=== PATIENT | female | born 1970 | race Caucasian/White ===

== ENCOUNTER 2019-01-07 18:15 | Inpatient (IN) | payer OTHER ==
[~2019-01-07] VITALS: Ht 172.7 cm; Wt 68.7 kg
[2019-01-07] MEDS ORDERED: BUPR75 PO (18:28)
[2019-01-07] MEDS ORDERED: CLON.5 PO (18:28)
[2019-01-07] MEDS ORDERED: VENL25TA47 PO (18:28)
[2019-01-07] MEDS ORDERED: BUPR100 PO (18:28)
[2019-01-07 19:08] LABS: BASOPHILS % (AUTO) 0.9 % (0.0-2.0); EOSINOPHILS % (AUTO) 1.7 % (1.0-6.0); HEMATOCRIT 40.1 % (36-46); LYMPHOCYTES # (AUTO) 2.1 K/uL (1.0-4.8); LYMPHOCYTES % (AUTO) 20.2 % (22.0-44.0); MEAN CORPUSCULAR HEMOGLOBIN 29.1 pg (26.0-34.0); MEAN CORPUSCULAR HGB CONC 32.4 G/dL (31.0-37.0); MEAN CORPUSCULAR VOLUME 90 fL (80-100); MONOCYTES # (AUTO) 0.7 K/uL (0.1-1.0); NEUTROPHILS # (AUTO) 7.2 K/uL (1.8-7.7); NEUTROPHILS % (AUTO) 70.2 % (40.0-70.0); PLATELET COUNT (AUTO) 337 K/uL (150-450); RED BLOOD CELL COUNT(AUTO) 4.46 MIL/uL (4.00-5.20); RED CELL DISTRIBUTION WIDTH 13.1 % (11.5-14.5)
[2019-01-07] MEDS ORDERED: LORazepam 1 MG TABLET PO ONE (19:15)
[2019-01-07 19:18] LABS: ANION GAP 8 mmol/L (8-16); CALCIUM, TOTAL 9.5 mg/dL (8.8-10.5); CARBON DIOXIDE 26 mmol/L (22-29); CHLORIDE 106 mmol/L (98-107); CREATININE 0.93 mg/dL (0.60-1.30); GLOMERULAR FILTR. RATE CALC > 60 mL/min (>60); GLUCOSE,RANDOM 106 mg/dL (70-110); SODIUM SERUM 140 mmol/L (136-145); UREA NITROGEN, BLOOD 15 mg/dL (7-18)
[2019-01-07 19:31] LABS: ALANINE AMINOTRANSFERASE 27 U/L (12-78); ALBUMIN 3.7 g/dL (3.4-5.0); ALKALINE PHOSPHATASE 116 U/L (46-116); ASPARTATE AMINOTRANSFERASE 22 U/L (15-37); BILIRUBIN,TOTAL 0.3 mg/dL (0.1-1.0); HCG,QUANTITATIVE 4 mIU/mL (0-6); TOTAL PROTEIN, SERUM 7.2 g/dL (6.4-8.2)
[2019-01-07] MEDS ORDERED: ACETAMINOPHEN 500 MG TABLET PO ONE (20:00)
[2019-01-07 21:00] VITALS: BP 126/79
[2019-01-07] MEDS ORDERED: 0.9% SODIUM CHLORIDE 10 ML SYRINGE IVP PRN (22:00)
[2019-01-07] MEDS ORDERED: ONDANSETRON HCL 4 MG/2 ML VIAL IVP PRN (22:00)
[2019-01-07] MEDS: DOCUSATE SODIUM 100 MG CAPSULE PO SCH (22:00)
[2019-01-07 23:40] VITALS: BP 104/72
[2019-01-07 23:46] VITALS: BP 114/59
[2019-01-08 04:54] VITALS: BP 105/59
[2019-01-08 07:03] LABS: BASOPHILS % (AUTO) 0.9 % (0.0-2.0); EOSINOPHILS % (AUTO) 3.2 % (1.0-6.0); HEMATOCRIT 38.5 % (36-46); HEMOGLOBIN 12.7 g/dL (12.0-16.0); LYMPHOCYTES # (AUTO) 2.3 K/uL (1.0-4.8); LYMPHOCYTES % (AUTO) 31.2 % (22.0-44.0); MEAN CORPUSCULAR HEMOGLOBIN 29.8 pg (26.0-34.0); MEAN CORPUSCULAR HGB CONC 32.9 G/dL (31.0-37.0); MEAN CORPUSCULAR VOLUME 91 fL (80-100); MONOCYTES # (AUTO) 0.7 K/uL (0.1-1.0); MONOCYTES % (AUTO) 9.6 % (2.0-9.0); NEUTROPHILS % (AUTO) 55.1 % (40.0-70.0); PLATELET COUNT (AUTO) 303 K/uL (150-450); RED BLOOD CELL COUNT(AUTO) 4.25 MIL/uL (4.00-5.20); RED CELL DISTRIBUTION WIDTH 12.9 % (11.5-14.5)
[2019-01-08 07:22] LABS: CALCIUM, TOTAL 9.1 mg/dL (8.8-10.5); CREATININE 1.04 mg/dL (0.60-1.30); POTASSIUM 4.3 mmol/L (3.5-5.1)
[2019-01-08 07:23] VITALS: BP 112/74
[2019-01-08] MEDS: DOCUSATE SODIUM 100 MG CAPSULE PO SCH ×2 (08:09→19:38)
[2019-01-08] MEDS: ACETAMINOPHEN 325 MG TABLET PO PRN (08:09)
[2019-01-08] MEDS ORDERED: VENLAFAXINE HCL 75 MG ER CAPSULE PO SCH (09:00)
[2019-01-08] MEDS ORDERED: BuPROPion HCL 100 MG TABLET PO SCH (09:00)
[2019-01-08] MEDS ORDERED: PANTOPRAZOLE SODIUM 40 MG DR TABLET PO SCH (09:00)
[2019-01-08] MEDS ORDERED: ClonazePAM 1 MG TABLET PO SCH (09:00)
[2019-01-08] MEDS ORDERED: BuPROPion HCL 75 MG TABLET PO SCH (09:00)
[2019-01-08] MEDS ORDERED: SODIUM CHLORIDE 0.9% 1,000 ML IV ONE (11:00)
[2019-01-08] MEDS ORDERED: DiphenhydrAMINE HCL 25 MG CAPSULE PO PRN (11:15)
[2019-01-08] MEDS ORDERED: BUPR-93 PO (11:22)
[2019-01-08] MEDS ORDERED: VENL-68 PO (11:22)
[2019-01-08 11:39] VITALS: BP 131/74
[2019-01-08] MEDS: VENLAFAXINE HCL 150 MG ER CAPSULE PO SCH (14:05)
[2019-01-08 15:31] VITALS: BP 134/80
[2019-01-08 16:46] LABS: AMPHET/METH SCREEN,URINE POSITIVE (NEGATIVE); BARBITURATE SCREEN, URINE NEGATIVE (NEGATIVE); BENZODIAZEPINES SCREEN,URINE NEGATIVE (NEGATIVE); CANNABINOID SCREEN,URINE NEGATIVE (NEGATIVE); COCAINE SCREEN,URINE NEGATIVE (NEGATIVE); METHADONE SCREEN, URINE NEGATIVE (NEGATIVE); OPIATE SCREEN,URINE NEGATIVE (NEGATIVE)
[2019-01-08 16:51] LABS: PHENCYCLIDINE SCREEN,URINE NEGATIVE (NEGATIVE)
[2019-01-08 19:35] VITALS: BP 112/69
[2019-01-08 23:35] VITALS: BP 107/65
[2019-01-09 04:55] VITALS: BP 110/68
[2019-01-09] MEDS: HydrOXYzine PAMOATE 50 MG CAPSULE PO PRN ×3 (05:03→17:50)
[2019-01-09] MEDS: ACETAMINOPHEN 325 MG TABLET PO PRN (05:03)
[2019-01-09 07:40] VITALS: BP 115/69
[2019-01-09] MEDS: MULTIVITAMINS WITH MINERALS, THERAPEUTIC TABLET PO SCH (09:09)
[2019-01-09] MEDS: VENLAFAXINE HCL 150 MG ER CAPSULE PO SCH (09:10)
[2019-01-09] MEDS: DOCUSATE SODIUM 100 MG CAPSULE PO SCH ×2 (09:12→21:00)
[2019-01-09 11:10] VITALS: BP 109/66
[2019-01-09 15:00] VITALS: BP 116/72
[2019-01-09 20:00] VITALS: BP 107/68
[2019-01-10] VITALS (7 sets, daily range): BP systolic 90–129; BP diastolic 54–91
[2019-01-10] MEDS: MULTIVITAMINS WITH MINERALS, THERAPEUTIC TABLET PO SCH (08:38)
[2019-01-10] MEDS: VENLAFAXINE HCL 150 MG ER CAPSULE PO SCH (08:38)
[2019-01-10] MEDS: DOCUSATE SODIUM 100 MG CAPSULE PO SCH ×2 (08:38→21:00)
[2019-01-10] MEDS: MEGESTROL ACETATE 400 MG/10 ML SUSPENSION UDCUP PO SCH ×2 (11:30→21:00)
[2019-01-10] MEDS: DEXTROSE 5%-0.45% SODIUM CHL 1,000 ML IV SCH (12:48)
[2019-01-10] MEDS: HydrOXYzine PAMOATE 50 MG CAPSULE PO PRN (13:50)
[2019-01-10] MEDS: MIRTAZAPINE 15 MG TABLET PO SCH (21:00)
[2019-01-10] MEDS: HEPARIN SODIUM,PORCINE 5,000 UNITS/ML VIAL SQ SCH (22:00)
[2019-01-11] VITALS (7 sets, daily range): BP systolic 92–115; BP diastolic 60–71
[2019-01-11] MEDS: DEXTROSE 5%-0.45% SODIUM CHL 1,000 ML IV SCH (04:25)
[2019-01-11] MEDS: HEPARIN SODIUM,PORCINE 5,000 UNITS/ML VIAL SQ SCH ×2 (07:50→23:48)
[2019-01-11] MEDS: MULTIVITAMINS WITH MINERALS, THERAPEUTIC TABLET PO SCH (07:50)
[2019-01-11] MEDS: VENLAFAXINE HCL 150 MG ER CAPSULE PO SCH (07:50)
[2019-01-11] MEDS: MEGESTROL ACETATE 400 MG/10 ML SUSPENSION UDCUP PO SCH ×2 (09:00→23:47)
[2019-01-11] MEDS: DOCUSATE SODIUM 100 MG CAPSULE PO SCH ×2 (09:00→23:47)
[2019-01-11] MEDS: HydrOXYzine PAMOATE 50 MG CAPSULE PO PRN (11:47)
[2019-01-11] MEDS: GABAPENTIN 100 MG CAPSULE PO SCH ×2 (18:00→23:47)
[2019-01-11] MEDS: MIRTAZAPINE 15 MG TABLET PO SCH (23:47)
[2019-01-12 05:09] VITALS: BP 97/62
[2019-01-12] MEDS: DEXTROSE 5%-0.45% SODIUM CHL 1,000 ML IV SCH ×2 (05:11→23:25)
[2019-01-12 08:06] VITALS: BP 110/71
[2019-01-12] MEDS: GABAPENTIN 100 MG CAPSULE PO SCH ×3 (09:10→20:22)
[2019-01-12] MEDS: DOCUSATE SODIUM 100 MG CAPSULE PO SCH ×3 (09:10→21:00)
[2019-01-12] MEDS: MEGESTROL ACETATE 400 MG/10 ML SUSPENSION UDCUP PO SCH ×2 (09:10→20:23)
[2019-01-12] MEDS: MULTIVITAMINS WITH MINERALS, THERAPEUTIC TABLET PO SCH (09:10)
[2019-01-12] MEDS: VENLAFAXINE HCL 150 MG ER CAPSULE PO SCH (09:10)
[2019-01-12] MEDS: HEPARIN SODIUM,PORCINE 5,000 UNITS/ML VIAL SQ SCH ×2 (09:15→20:23)
[2019-01-12] MEDS: ACETAMINOPHEN 325 MG TABLET PO PRN (12:03)
[2019-01-12 12:18] VITALS: BP 119/80
[2019-01-12 16:26] VITALS: BP 105/70
[2019-01-12 19:29] VITALS: BP 99/62
[2019-01-12] MEDS: MIRTAZAPINE 15 MG TABLET PO SCH (20:22)
[2019-01-13 00:32] VITALS: BP 113/76
[2019-01-13 05:17] VITALS: BP 111/61
[2019-01-13 06:17] LABS: ALANINE AMINOTRANSFERASE 17 U/L (12-78); ALKALINE PHOSPHATASE 100 U/L (46-116); ANION GAP 7 mmol/L (8-16); ASPARTATE AMINOTRANSFERASE 16 U/L (15-37); BILIRUBIN,TOTAL 0.2 mg/dL (0.1-1.0); CALCIUM, TOTAL 8.9 mg/dL (8.8-10.5); CARBON DIOXIDE 29 mmol/L (22-29); CHLORIDE 108 mmol/L (98-107); GLOMERULAR FILTR. RATE CALC > 60 mL/min (>60); GLUCOSE,RANDOM 94 mg/dL (70-110); POTASSIUM 4.2 mmol/L (3.5-5.1); SODIUM SERUM 144 mmol/L (136-145); TOTAL PROTEIN, SERUM 6.1 g/dL (6.4-8.2); UREA NITROGEN, BLOOD 6 mg/dL (7-18)
[2019-01-13 07:54] VITALS: BP_SYST 108; BP_SYST 8; BP_DIAS 67
[2019-01-13] MEDS: HEPARIN SODIUM,PORCINE 5,000 UNITS/ML VIAL SQ SCH ×2 (08:21→20:06)
[2019-01-13] MEDS: VENLAFAXINE HCL 150 MG ER CAPSULE PO SCH (08:22)
[2019-01-13] MEDS: GABAPENTIN 100 MG CAPSULE PO SCH ×3 (08:22→20:05)
[2019-01-13] MEDS: MEGESTROL ACETATE 400 MG/10 ML SUSPENSION UDCUP PO SCH ×2 (08:22→20:05)
[2019-01-13] MEDS: MULTIVITAMINS WITH MINERALS, THERAPEUTIC TABLET PO SCH (08:23)
[2019-01-13] MEDS: DOCUSATE SODIUM 100 MG CAPSULE PO SCH ×2 (08:24→21:00)
[2019-01-13] MEDS: DEXTROSE 5%-0.45% SODIUM CHL 1,000 ML IV SCH ×2 (15:53→23:05)
[2019-01-13 16:21] VITALS: BP 110/70
[2019-01-13] MEDS: MIRTAZAPINE 15 MG TABLET PO SCH (20:06)
[2019-01-13 20:10] VITALS: BP 94/40
[2019-01-13 23:45] VITALS: BP 95/62
[2019-01-14 05:00] VITALS: BP 110/68
[2019-01-14] MEDS: MEGESTROL ACETATE 400 MG/10 ML SUSPENSION UDCUP PO SCH ×3 (08:37→21:00)
[2019-01-14] MEDS: VENLAFAXINE HCL 150 MG ER CAPSULE PO SCH (08:37)
[2019-01-14] MEDS: HEPARIN SODIUM,PORCINE 5,000 UNITS/ML VIAL SQ SCH ×2 (08:37→20:27)
[2019-01-14] MEDS: MULTIVITAMINS WITH MINERALS, THERAPEUTIC TABLET PO SCH (08:38)
[2019-01-14] MEDS: GABAPENTIN 100 MG CAPSULE PO SCH ×3 (08:38→20:27)
[2019-01-14] MEDS: DOCUSATE SODIUM 100 MG CAPSULE PO SCH ×3 (08:40→21:00)
[2019-01-14 09:14] VITALS: BP 101/62
[2019-01-14] MEDS: DEXTROSE 5%-0.45% SODIUM CHL 1,000 ML IV SCH (11:03)
[2019-01-14 19:39] VITALS: BP 107/76
[2019-01-14] MEDS: MIRTAZAPINE 15 MG TABLET PO SCH (20:27)
[2019-01-15] MEDS: DEXTROSE 5%-0.45% SODIUM CHL 1,000 ML IV SCH ×2 (04:51→22:15)
[2019-01-15 04:54] VITALS: BP 101/66
[2019-01-15 07:40] VITALS: BP 110/57
[2019-01-15] MEDS: GABAPENTIN 100 MG CAPSULE PO SCH (07:51)
[2019-01-15] MEDS: MULTIVITAMINS WITH MINERALS, THERAPEUTIC TABLET PO SCH (07:51)
[2019-01-15] MEDS: DOCUSATE SODIUM 100 MG CAPSULE PO SCH ×3 (07:51→19:46)
[2019-01-15] MEDS: VENLAFAXINE HCL 150 MG ER CAPSULE PO SCH (07:51)
[2019-01-15] MEDS: HEPARIN SODIUM,PORCINE 5,000 UNITS/ML VIAL SQ SCH ×2 (07:52→19:43)
[2019-01-15] MEDS: MEGESTROL ACETATE 400 MG/10 ML SUSPENSION UDCUP PO SCH ×2 (07:53→19:42)
[2019-01-15 11:27] VITALS: BP 102/60
[2019-01-15 15:20] VITALS: BP 111/72
[2019-01-15] MEDS: GABAPENTIN 300 MG CAPSULE PO SCH ×2 (15:37→19:42)
[2019-01-15] MEDS: MIRTAZAPINE 15 MG TABLET PO SCH (19:42)
[2019-01-15 19:50] VITALS: BP 102/71
[2019-01-16] VITALS (7 sets, daily range): BP systolic 96–117; BP diastolic 55–77
[2019-01-16] MEDS: DOCUSATE SODIUM 100 MG CAPSULE PO SCH ×2 (08:12→21:00)
[2019-01-16] MEDS: MEGESTROL ACETATE 400 MG/10 ML SUSPENSION UDCUP PO SCH ×2 (09:11→21:00)
[2019-01-16] MEDS: VENLAFAXINE HCL 150 MG ER CAPSULE PO SCH (09:11)
[2019-01-16] MEDS: GABAPENTIN 300 MG CAPSULE PO SCH ×3 (09:11→21:08)
[2019-01-16] MEDS: MULTIVITAMINS WITH MINERALS, THERAPEUTIC TABLET PO SCH (09:11)
[2019-01-16] MEDS: HEPARIN SODIUM,PORCINE 5,000 UNITS/ML VIAL SQ SCH ×2 (09:12→21:00)
[2019-01-16] MEDS: ACETAMINOPHEN 325 MG TABLET PO PRN (21:07)
[2019-01-16] MEDS: MIRTAZAPINE 15 MG TABLET PO SCH (21:08)
[2019-01-17 05:07] VITALS: BP 105/55
[2019-01-17] MEDS: DEXTROSE 5%-0.45% SODIUM CHL 1,000 ML IV SCH (07:48)
[2019-01-17 07:57] VITALS: BP 104/56
[2019-01-17] MEDS: HEPARIN SODIUM,PORCINE 5,000 UNITS/ML VIAL SQ SCH ×2 (08:37→20:38)
[2019-01-17] MEDS: MULTIVITAMINS WITH MINERALS, THERAPEUTIC TABLET PO SCH (08:37)
[2019-01-17] MEDS: DOCUSATE SODIUM 100 MG CAPSULE PO SCH ×2 (08:37→20:42)
[2019-01-17] MEDS: GABAPENTIN 300 MG CAPSULE PO SCH ×3 (08:37→20:38)
[2019-01-17] MEDS: VENLAFAXINE HCL 150 MG ER CAPSULE PO SCH (08:37)
[2019-01-17] MEDS: MEGESTROL ACETATE 400 MG/10 ML SUSPENSION UDCUP PO SCH ×2 (08:38→20:42)
[2019-01-17 13:22] VITALS: BP 104/68
[2019-01-17 17:09] VITALS: BP 91/64
[2019-01-17 20:10] VITALS: BP 104/55
[2019-01-17] MEDS: MIRTAZAPINE 15 MG TABLET PO SCH (20:37)
[2019-01-17 23:48] VITALS: BP 100/68
[2019-01-18] MEDS: DEXTROSE 5%-0.45% SODIUM CHL 1,000 ML IV SCH (02:45)
[2019-01-18 05:25] VITALS: BP 90/56
[2019-01-18 08:21] VITALS: BP 104/70
[2019-01-18] MEDS: HEPARIN SODIUM,PORCINE 5,000 UNITS/ML VIAL SQ SCH (08:31)
[2019-01-18] MEDS: GABAPENTIN 300 MG CAPSULE PO SCH (08:31)
[2019-01-18] MEDS: VENLAFAXINE HCL 150 MG ER CAPSULE PO SCH (08:31)
[2019-01-18] MEDS: DOCUSATE SODIUM 100 MG CAPSULE PO SCH (08:31)
[2019-01-18] MEDS: MULTIVITAMINS WITH MINERALS, THERAPEUTIC TABLET PO SCH (08:31)
[2019-01-18 12:12] VITALS: BP 98/64
[2019-01-18] MEDS ORDERED: MIRT15 PO (12:40)
[2019-01-18] MEDS ORDERED: GABA-531 PO (12:40)
[2019-01-18 16:11] VITALS: BP 170/74
== END 2019-01-18 16:10 | DRG 885 ==
LOC: EMS 18:16 → 6S 20:03
PROVIDERS: ADMIT Internal Medicine; ATTEND Internal Medicine
DX: F33.2 Major depressive disorder, recurrent severe without psychotic features (principal); E43 Unspecified severe protein-calorie malnutrition; R45.851 Suicidal ideations; F15.20 Other stimulant dependence, uncomplicated; F41.0 Panic disorder [episodic paroxysmal anxiety]; E86.0 Dehydration; R62.7 Adult failure to thrive; F50.9 Eating disorder, unspecified; F41.1 Generalized anxiety disorder; R00.0 Tachycardia, unspecified; Z98.84 Bariatric surgery status; Z79.899 Other long term (current) drug therapy; Z90.49 Acquired absence of other specified parts of digestive tract; Z68.23 Body mass index [BMI] 23.0-23.9, adult
CPT/HCPCS: 80307; 83735; 93005; G0480; J1644; J2405; J7030

== ENCOUNTER 2019-01-18 18:31 | Inpatient (IN) | payer OTHER ==
[~2019-01-18] VITALS: Ht 167.6 cm; Wt 69.1 kg
[~2019-01-18 18:31] MED LIST: BUPR-93 PO; BUPR100 PO; BUPR75 PO; CLON.5 PO; GABA-531 PO; MIRT15 PO; VENL-68 PO; VENL25TA47 PO
[2019-01-18 22:00] VITALS: BP 124/79
[2019-01-18 23:57] VITALS: BP 102/69
[2019-01-19] MEDS ORDERED: BISACODYL 10 MG RECTAL RECTAL SUPPOSITORY PR PRN (00:30)
[2019-01-19] MEDS ORDERED: MAGNESIUM HYDROXIDE SUSPENSION 30 ML UDCUP PO PRN (00:30)
[2019-01-19] MEDS ORDERED: ONDANSETRON HCL 4 MG/2 ML VIAL IVP PRN (00:30)
[2019-01-19] MEDS ORDERED: ZOLPIDEM TARTRATE 5 MG TABLET PO PRN (00:30)
[2019-01-19] MEDS ORDERED: IPRATROPIUM BROMIDE 0.5 MG/2.5 ML NEB SOLUTION NEB PRN (00:30)
[2019-01-19] MEDS ORDERED: ALBUTEROL SULFATE 2.5 MG/0.5 ML NEB SOLUTION NEB PRN (00:30)
[2019-01-19] MEDS ORDERED: HYDROCODONE/ACETAMINOPHEN 5-325 MG TABLET PO PRN (00:30)
[2019-01-19] MEDS ORDERED: ACETAMINOPHEN 325 MG TABLET PO PRN (00:30)
[2019-01-19] MEDS ORDERED: MORPHINE SULFATE 2 MG/ML SYRINGE IVP PRN (00:30)
[2019-01-19 04:00] VITALS: BP 99/52
[2019-01-19 07:56] VITALS: BP 115/57
[2019-01-19] MEDS ORDERED: HEPARIN SODIUM,PORCINE 5,000 UNITS/ML VIAL SQ SCH (08:00)
[2019-01-19] MEDS ORDERED: DOCUSATE SODIUM 100 MG CAPSULE PO SCH (09:00)
[2019-01-19] MEDS ORDERED: GABAPENTIN 300 MG CAPSULE PO SCH (09:15)
[2019-01-19] MEDS ORDERED: VENLAFAXINE HCL 150 MG ER CAPSULE PO SCH (09:15)
[2019-01-19] MEDS ORDERED: MIRTAZAPINE 15 MG TABLET PO SCH (21:00)
== END 2019-01-19 10:45 | DRG 881 ==
LOC: EMS 18:32 → 6S 21:00
PROVIDERS: ADMIT Hospitalist; ATTEND Hospitalist
DX: F32.9 Major depressive disorder, single episode, unspecified (principal); E43 Unspecified severe protein-calorie malnutrition; R45.851 Suicidal ideations; F41.9 Anxiety disorder, unspecified; Z98.84 Bariatric surgery status; Z68.24 Body mass index [BMI] 24.0-24.9, adult; Z79.899 Other long term (current) drug therapy; Z90.49 Acquired absence of other specified parts of digestive tract
CPT/HCPCS: J1644

== ENCOUNTER 2019-01-20 23:16 | Inpatient (IN) | payer OTHER ==
[~2019-01-20] VITALS: Ht 167.6 cm; Wt 68.2 kg
[~2019-01-20 23:16] MED LIST changes: -BUPR-93 PO; -BUPR100 PO; -BUPR75 PO; -CLON.5 PO; -VENL25TA47 PO
[2019-01-20] MEDS ORDERED: BACITRACIN 0.9 GM PACKET OINTMENT TP ONE (23:45)
[2019-01-21] MEDS ORDERED: ONDANSETRON HCL 4 MG/2 ML VIAL IVP PRN ×2 (02:30→04:15)
[2019-01-21] MEDS ORDERED: ACETAMINOPHEN 325 MG TABLET PO PRN (02:30)
[2019-01-21] MEDS ORDERED: 0.9% SODIUM CHLORIDE 10 ML SYRINGE IVP PRN ×2 (02:30→04:15)
[2019-01-21 03:18] VITALS: BP 120/82
[2019-01-21] MEDS ORDERED: OxyCODONE HCL/ACETAMINOPHEN 5-325 MG TABLET PO PRN ×2 (04:15)
[2019-01-21 08:00] VITALS: BP 103/67
[2019-01-21] MEDS: DOCUSATE SODIUM 100 MG CAPSULE PO SCH ×2 (09:00→20:10)
[2019-01-21 12:05] VITALS: BP 110/73
[2019-01-21] MEDS: MULTIVITAMINS, THERAPEUTIC TABLET PO SCH (13:40)
[2019-01-21] MEDS: VENLAFAXINE HCL 150 MG ER CAPSULE PO SCH (13:40)
[2019-01-21 15:59] VITALS: BP 91/62
[2019-01-21] MEDS ORDERED: MIRTAZAPINE 15 MG TABLET PO SCH (21:00)
[2019-01-22 00:08] VITALS: BP 122/76
[2019-01-22 04:00] VITALS: BP 102/74
[2019-01-22 05:20] LABS: BASOPHILS % (AUTO) 0.9 % (0.0-2.0); EOSINOPHILS % (AUTO) 3.3 % (1.0-6.0); HEMATOCRIT 38.8 % (36-46); HEMOGLOBIN 12.7 g/dL (12.0-16.0); LYMPHOCYTES # (AUTO) 2.8 K/uL (1.0-4.8); LYMPHOCYTES % (AUTO) 36.9 % (22.0-44.0); MEAN CORPUSCULAR HEMOGLOBIN 29.5 pg (26.0-34.0); MEAN CORPUSCULAR HGB CONC 32.7 G/dL (31.0-37.0); MEAN CORPUSCULAR VOLUME 90 fL (80-100); MONOCYTES # (AUTO) 0.7 K/uL (0.1-1.0); MONOCYTES % (AUTO) 9.6 % (2.0-9.0); NEUTROPHILS # (AUTO) 3.7 K/uL (1.8-7.7); NEUTROPHILS % (AUTO) 49.3 % (40.0-70.0); PLATELET COUNT (AUTO) 332 K/uL (150-450); RED BLOOD CELL COUNT(AUTO) 4.31 MIL/uL (4.00-5.20)
[2019-01-22 05:30] LABS: CALCIUM, TOTAL 8.8 mg/dL (8.8-10.5); CREATININE 1.04 mg/dL (0.60-1.30); POTASSIUM 4.1 mmol/L (3.5-5.1)
[2019-01-22 07:39] VITALS: BP 93/57
[2019-01-22] MEDS: MULTIVITAMINS, THERAPEUTIC TABLET PO SCH (07:53)
[2019-01-22] MEDS: VENLAFAXINE HCL 150 MG ER CAPSULE PO SCH (07:53)
[2019-01-22] MEDS: DOCUSATE SODIUM 100 MG CAPSULE PO SCH (08:03)
[2019-01-22] MEDS ORDERED: DSS100 PO (11:20)
[2019-01-22] MEDS ORDERED: MULT-735 PO (11:23)
[2019-01-22] MEDS ORDERED: LORazepam 2 MG TABLET PO ONE (11:45)
[2019-01-22 11:51] VITALS: BP 128/62
[2019-01-22 15:53] VITALS: BP 104/66
== END 2019-01-22 16:00 | DRG 605 ==
LOC: EMS 23:17 → 6S 01-21 02:00
PROVIDERS: ADMIT Internal Medicine; ATTEND Internal Medicine
DX: S00.83XA Contusion of other part of head, initial encounter (principal); F41.9 Anxiety disorder, unspecified; F32.9 Major depressive disorder, single episode, unspecified; Z90.49 Acquired absence of other specified parts of digestive tract; Z98.84 Bariatric surgery status; F15.90 Other stimulant use, unspecified, uncomplicated; W18.39XA Other fall on same level, initial encounter; Y93.89 Activity, other specified; Y92.89 Other specified places as the place of occurrence of the external cause; Y99.8 Other external cause status
CPT/HCPCS: 70450; 72125; 87081